=== PATIENT | male | born 1970 | race Two or more races ===

== ENCOUNTER → 2019-12-04 | Day surgery (SDC) | payer OTHER ==
[~2019-12-04] VITALS: Ht 177.8 cm; Wt 90.7 kg
[2019-12-04] VITALS (12 sets, daily range): BP systolic 106–124; BP diastolic 59–78
[~2019-12-04] MED LIST: Clindamycin 600mg/D5W 50ml IV ONE; D5 1/2NS 1,000 ML IV SCH; DiphenhydrAMINE 50mg/ml Inj IVP PRN; Duramorph PF 5mg/10ml amp ONE; EPINEPHrine 1mg/1ml Amp ONE; HYDROcodone/Acetamin 5/325 tab ORAL PRN; HYDROmorphone 1mg/ml Carpuject SUBQ PRN; Hydromorphone 0.5mg/0.5ml inj IVP PRN; Kenalog-40 1ml Vial ONE; Ketorolac 30mg Inj IV PRN; Ketorolac 30mg Inj ONE; LORazepam Inj 2mg/ml 1ml IV PRN; LR 1000ml 1,000 ML IVLG SCH; LR 1000ml ONE; Labetalol 5mg/ml 20ml vial IV PRN; Lidocaine 1% 10mg/ml/Epi 0.005mg/ml 30ml vial INJ ONE; Lidocaine 1% MPF 10mg/ml 5ml ONE; Metoclopramide 10mg/2ml Inj IVP PRN; Midazolam 2mg/2ml Inj IVP PRN; Midazolam 2mg/2ml Inj ONE; NS Irrig 2000ml IRRIG ONE; NS Irrig 4000ml IRRIG ONE; Sterile Water Irrig 1000ml IRRIG ONE; TRAMADOL HCL50 MG ORAL; Tylenol #3 tab (300mg/30mg) ORAL PRN; celeBREX 200mg Cap **SURGERY PATIENTS ONLY ORAL ONE; fentaNYL 100 mcg/2 mL IV ONE; fentaNYL 100 mcg/2 mL IV PRN; oxyCONTIN 20mg tab ORAL ONE
--- NOTE | 2019-12-04 07:26 | Anethesia Preoperative Eval ---
Anesthesia Pre-op PMH/ROS General Date of Evaluation: Dec 04, 2019 Anesthesiologist: Cesar ASA Score: ASA 2 Mallampati Score Class I : Soft palate, uvula, fauces, pillars visible Class II: Soft palate, uvula, fauces visible Class III: Soft palate, base of uvula visible Class IV: Only hard plate visible Mallampati Classification: Class II Surgeon: Alex Diagnosis: Right knee pain Surgical Procedure: Right knee arthroscopy Anesthesia History: none Family History: no anesthesia problems Allergies: Coded Allergies: PENICILLINS (Verified Allergy, Severe, VOMITING, 12/04/19) Medications: see eMAR Patient NPO?: Yes NPO Date: Dec 04, 2019 NPO Time: 00:00 Past Medical History Cardiovascular: Denies: HTN, CAD, [place], valve dz, arrhythmia, other Pulmonary: Denies: asthma, COPD, NEGAR, other Gastrointestinal/Genitourinary: Reports: GERD; Denies: CRI, ESRD, other Neurologic/Psychiatric: Denies: dementia, CVA, depression/anxiety, TIA, other Endocrine: Denies: DM, hypothyroidism, steroids, other HEENT: Denies: cataract (L), cataract (R), glaucoma, [place] (L), [place] (R), other Hematology/Immune: Denies: anemia, DVT, bleeding disorder, other Musculoskeletal/Integumentary: Denies: OA, RA, DJD, DDD, edema, other PSxH Narrative: Right knee arthrocopy Anesthesia Pre-op Phys. Exam Physician Exam Last Vital Signs Date Time Temp Pulse Resp B/P (MAP) Pulse Ox O2 Delivery O2 Flow Rate FiO2 12/04/19 06:04 97.0 75 18 122/78 97 Room Air Constitutional: NAD Cardiovascular: RRR Respiratory: CTA Airway Exam Mallampati Score: Class II MO: full ROM: full Anesthesia Pre-op A/P Labs see chart Studies Pre-op Studies: EKG - sr Risk Assessment & Plan Assessment: ASA II Plan: GA Status Change Before Surgery: No Pre-Antibiotics Drug: Ancef 2g Given Within 1 Hr of Incision: Yes Marjorie Guerrero MD Dec 04, 2019 07:26
--- NOTE | 2019-12-04 07:33 | Operative Note - PDOC ---
Operative Note Operative Note Pre-op Diagnosis: right knee internal derangement Procedure: see op report Post-op Diagnosis: same as pre-op plus Operative Findings: consistent w/pre-op dx studies Anesthesia: MAC Specimen: none Complications: none Condition: stable Estimated Blood Loss: none Implant(s) used?: No Myron Johnson MD Dec 04, 2019 07:33
--- NOTE | 2019-12-04 07:33 | Pre-Procedure Note/Attestation ---
Pre-Procedure Note/Attestation Complete Prior to Procedure Planned Procedure: right Procedure Narrative: knee diagnostic arthroscopy, possible synovectomy, chondroplasty Indications for Procedure Pre-Operative Diagnosis: right knee internal derangement Attestation I attest that I discussed the nature of the procedure; its benefits; risks and complications; and alternatives (and the risks and benefits of such alternatives), prior to the procedure, with the patient (or the patient's legal inside technical sales representative). I attest that, if there was a reasonable possibility of needing a blood transfusion, the patient (or the patient's legal inside technical sales representative) was given the [facility] standardized written summary, pursuant to the [employer] Blood Safety Act ([place] Health and Safety Code # 1645, as amended). I attest that I re-evaluated the patient just prior to the surgery and that there has been no change in the patient's H&P, except as documented below: Myron Johnson MD Dec 04, 2019 07:33
[2019-12-04] MEDS: Bupivacaine 0.25% Inj 30ml INJ ONE ×2 (07:40→08:08)
--- NOTE | 2019-12-04 08:26 | 48 Hour Post Anesthesia Eval ---
Post Anesthesia Evaluation Procedure: Right knee arthroscopy Date of Evaluation: Dec 04, 2019 Airway: patent Nausea: No Vomiting: No Hydration Status: adequate Cardiopulmonary Status: at baseline Mental Status/LOC: patient returned to baseline Follow-up care needed: ready to discharge Marjorie Guerrero MD Dec 04, 2019 08:26
--- NOTE | 2019-12-04 08:26 | Immediate Post-Op Evaluation ---
Immediate Post-Op Evalulation Immediate Post-Op Evalulation Procedure: Right knee arthroscopy Date of Evaluation: Dec 04, 2019 Time of Evaluation: 08:27 IV Fluids: 200 Blood Products: 0 Estimated Blood Loss: min Urinary Output: 0 Blood Pressure Systolic: 109 Blood Pressure Diastolic: 61 Pulse Rate: 67 Respiratory Rate: 16 O2 Sat by Pulse Oximetry: 98 Temperature (Fahrenheit): 98 Pain Score (1-10): 0 Nausea: No Vomiting: No Complications 0 Patient Status: awake, reacts, patent, none Hydration Status: adequate Drug: Ancef 2g Given Within 1 Hr of Incision: Yes Marjorie Guerrero MD Dec 04, 2019 08:26
--- NOTE | 2019-12-07 08:45 | Operative Note - Dictated ---
DATE OF OPERATION: 12/04/2019 PREOPERATIVE DIAGNOSIS: Right knee internal derangement secondary to meniscal chondral damage. POSTOPERATIVE DIAGNOSES: 1. Right knee medial meniscus tear. 2. Grade 1 chondral damage, medial femoral condyle. 3. Hypertrophic synovial tissue medial and lateral patellofemoral compartment. PROCEDURES: 1. Right knee arthroscopic partial medial meniscectomy. 2. Gentle chondroplasty, medial femoral condyle. 3. Synovectomy, medial and lateral patellofemoral compartment. SURGEON: Myron Johnson MD. ANESTHESIA: MAC. INDICATION FOR PROCEDURE: The patient is a pleasant gentleman, who has had progressive right knee pain. He failed conservative treatment and elected to undergo right knee diagnostic arthroscopy, possible meniscectomy, synovectomy, and chondroplasty based on intraoperative findings. Risks, limitations, expectations, and complications of procedure were discussed in detail. All questions addressed. DESCRIPTION OF PROCEDURE: After informed consent was obtained, the patient was brought to the operating room. The patient was placed under general anesthesia. Right leg was prepped and draped in a sterile manner. Time-out was performed. Inferolateral stab incision was then made. Trocar was introduced into the knee joint. There was hypertrophic synovial tissue making visualization somewhat difficult. Medial gutter was free from loose bodies. Medial compartment was entered. Medial working portal was established. Partial medial meniscectomy was performed. Once that was completed, there was some grade 1 chondral damage in the medial femoral condyle. Gentle chondroplasty was performed. Synovectomy extended to intercondylar notch, lateral compartment. ACL was probed and noted to be intact. Lateral compartment was entered, free of any meniscal chondral damage. Camera was repositioned in the patellofemoral compartment. Completion of the synovectomy in the patellofemoral compartment was performed. Once that was done, the instruments were removed. Portal sites were closed using 3-0 Monocryl sutures. Steri-Strips and a sterile dressing were applied. ESTIMATED BLOOD LOSS: None. COMPLICATIONS: None. SPECIMENS: None. IMPLANTS: None. Myron Johnson M.D. DR: NIMA JOB#: [id number] CC:
== END | disposition home or self-care (01) ==
LOC: SUR 05:24
DX: M67.261 Synovial hypertrophy, not elsewhere classified, right lower leg (principal); S83.241A Other tear of medial meniscus, current injury, right knee, initial encounter; X58.XXXA Exposure to other specified factors, initial encounter; Y92.9 Unspecified place or not applicable; Z88.0 Allergy status to penicillin; K21.9 Gastro-esophageal reflux disease without esophagitis
CPT/HCPCS: 29876; 29881; 94003; J0690; J1885; J2250; J2704; J3010; J3301; J3490; J7120; U0002; 94150